=== PATIENT | female | born 1945 | race African-American/Black ===

== ENCOUNTER 2017-06-18 22:58 | Emergency (ER) | payer MEDICARE, BC ==
[~2017-06-18] VITALS: Ht 172.7 cm; Wt 76.0 kg
[2017-06-18 23:09] VITALS: BP 211/100; PULSE 83; RESP 16; TEMP 98.7; O2SAT 97
[2017-06-18] MEDS ORDERED: CARV25TA PO (23:45)
[2017-06-18] MEDS ORDERED: PHILCAP2 (23:45)
[2017-06-18] MEDS ORDERED: VITACAP7 PO (23:45)
[2017-06-18] MEDS ORDERED: DIPH25CA PO (23:45)
[2017-06-18] MEDS ORDERED: CENTCHW4 CHEW (23:45)
[2017-06-18] MEDS ORDERED: CHLO25TA2 PO (23:45)
[2017-06-18] MEDS ORDERED: FEXO15TA PO (23:45)
[2017-06-18] MEDS ORDERED: ASPI1TAB57 PO (23:45)
[2017-06-18] MEDS ORDERED: CETI10 PO (23:45)
[2017-06-18] MEDS ORDERED: [UNRECOGNIZED DRUG - CODE] PO (23:45)
[2017-06-18] MEDS ORDERED: TAMO20TA6 PO (23:45)
--- NOTE | 2017-06-18 23:53 | PD ---
HPI Chief Complaint: GI Complaint Time Seen by Provider: 23:43 Travel History International Travel<30 days: No Contact w/Intl Traveler<30days: No Traveled to known affect area: No History of Present Illness HPI 72yo F with PMH of HTN here with c/o abdominal pain since 7pm. Said it started about 1 hour after dinner and pain is epigastric, RUQ and then went to [facility] as well. Sharp, constant pain. Associated with nausea and an episode of vomiting. Also loose stools. Pt had she did have gallstones years ago. PSH c- section, double mastectomy (cancer free for 9 years). Denies any fever, chest pain, sob, dysuria, hematuria, focal weakness or numbness. PFSH Past Medical History Cancer: Yes (BREAST) Cardiovascular Problems: Yes (HTN) Hypertension: Yes Past Surgical History Section: Yes (X2) Hysterectomy: Yes Other Surgery: Yes (THYROID / DBL MAST) Social History Alcohol Use: Yes (OCC) Tobacco Use: No Substance Use: No Allergies-Medications (Allergen,Severity, Reaction): Coded Allergies: alendronate sodium (Verified Allergy, Severe, Anaphylaxis, 06/18/17) prochlorperazine (Verified Allergy, Severe, Anaphylaxis, 06/18/17) gabapentin (Verified Adverse Reaction, Intermediate, Edema, 06/18/17) levofloxacin (Verified Adverse Reaction, Intermediate, Cough, 06/18/17) naproxen (Verified Adverse Reaction, Intermediate, Nausea/Vomiting, ) oxycodone (Verified Adverse Reaction, Intermediate, Nausea/Vomiting, ) Reported Meds & Prescriptions Reported Meds & Active Scripts Active Reported Diphenhydramine (Diphenhydramine HCl) 25 Mg Cap 25 Mg PO ONCE Cetirizine (Cetirizine HCl) 10 Mg Tab 10 Mg PO DAILY Julia Allergy (Fexofenadine HCl) 180 Mg Tab 180 Mg PO DAILY [employer] (Probiotic Product) 1.5 Billion Cell Cap Calcium Plus Vitamin D3 (Calcium Carbonate-Cholecalciferol) 600-400 Mg-Unit Tab 1 Tab PO BID B Complex (B-Complex Vitamins) 1 Cap 1 Cap PO DAILY Centrum (Multiple Vitamins W/ Minerals) 1 Chew 1 Tab CHEW DAILY Aspirin 81 (Aspirin) 81 Mg Tabdr 81 Mg PO DAILY Tamoxifen (Tamoxifen Citrate) 20 Mg Tab 20 Mg PO ONCE Chlorthalidone 25 Mg Tab 25 Mg PO DAILY Carvedilol 25 Mg Tab 25 Mg PO BID Review of Systems Except as stated in HPI: all other systems reviewed are Neg Physical Exam Narrative GENERAL: 72yo F in mild distress. SKIN: Focused skin assessment warm/dry. HEAD: Atraumatic. Normocephalic. EYES: Pupils equal and round. No scleral icterus. No injection or drainage. ENT: No nasal bleeding or discharge. Mucous membranes pink and moist. NECK: Trachea midline. No JVD. CARDIOVASCULAR: Regular rate and rhythm. No murmur appreciated. RESPIRATORY: No accessory muscle use. Clear to auscultation. Breath sounds equal bilaterally. GASTROINTESTINAL: Abdomen soft, +TTP RUQ, mild epigastric ttp. No rebound tenderness or guarding. MUSCULOSKELETAL: No obvious deformities. No clubbing. No cyanosis. No edema. NEUROLOGICAL: Awake and alert. No obvious cranial nerve deficits. Motor grossly within normal limits. Normal speech. PSYCHIATRIC: Appropriate mood and affect; insight and judgment normal. Data Data Last Documented VS Vital Signs Date Time Temp Pulse Resp B/P (MAP) Pulse Ox O2 Delivery O2 Flow Rate FiO2 06/19/17 01:32 70 18 198/93 (128) 100 Room Air 06/18/17 23:09 98.7 Orders Orders Basic Metabolic Panel (Bmp) (06/18/17 23:49) Complete Blood Count With Diff (06/18/17 23:49) Lipase (06/18/17 23:49) Prothrombin Time / Inr (Pt) (06/18/17 23:49) Act Partial Throm Time (Ptt) (06/18/17 23:49) Urinalysis - C+S If Indicated (06/18/17 23:49) Hepatic Functional Panel (06/18/17 23:49) Ondansetron Inj (Zofran Inj) (06/19/17 00:00) Morphine Inj (Morphine Inj) (06/19/17 00:00) Electrocardiogram (06/18/17 ) Troponin I (06/19/17 00:22) Ct Abd/Pel W Iv Contrast(Rout) (06/19/17 ) Morphine Inj (Morphine Inj) (06/19/17 01:45) Iohexol 350 Inj (Omnipaque 350 Inj) (06/19/17 01:54) Labs Laboratory Tests Test 06/19/17 00:22 06/19/17 01:20 White Blood Count 12.5 TH/MM3 Red Blood Count 4.30 MIL/MM3 Hemoglobin 13.6 GM/DL Hematocrit 40.7 % Mean Corpuscular Volume 94.8 FL Mean Corpuscular Hemoglobin 31.6 PG Mean Corpuscular Hemoglobin Concent 33.4 % Red Cell Distribution Width 12.6 % Platelet Count 180 TH/MM3 Mean Platelet Volume 9.5 FL Neutrophils (%) (Auto) 67.2 % Lymphocytes (%) (Auto) 21.5 % Monocytes (%) (Auto) 9.2 % Eosinophils (%) (Auto) 1.5 % Basophils (%) (Auto) 0.6 % Neutrophils # (Auto) 8.4 TH/MM3 Lymphocytes # (Auto) 2.7 TH/MM3 Monocytes # (Auto) 1.2 TH/MM3 Eosinophils # (Auto) 0.2 TH/MM3 Basophils # (Auto) 0.1 TH/MM3 CBC Comment DIFF FINAL Differential Comment Prothrombin Time 12.7 SEC Prothromb Time International Ratio 1.1 RATIO Activated Partial Thromboplast Time 25.9 SEC Blood Urea Nitrogen 19 MG/DL Creatinine 1.10 MG/DL Random Glucose 97 MG/DL Total Protein 7.7 GM/DL Albumin 3.7 GM/DL Calcium Level 8.9 MG/DL Alkaline Phosphatase 52 U/L Aspartate Amino Transf (AST/SGOT) 31 U/L Alanine Aminotransferase (ALT/SGPT) 26 U/L Total Bilirubin 0.4 MG/DL Direct Bilirubin 0.1 MG/DL Sodium Level 137 MEQ/L Potassium Level 3.5 MEQ/L Chloride Level 101 MEQ/L Carbon Dioxide Level 28.3 MEQ/L Anion Gap 8 MEQ/L Estimat Glomerular Filtration Rate 59 ML/MIN Indirect Bilirubin 0.3 MG/DL Troponin I LESS THAN 0.02 NG/ML Lipase 285 U/L Urine Color YELLOW Urine Turbidity HAZY Urine pH 8.0 Urine Specific Tinnie 1.018 Urine Protein TRACE mg/dL Urine Glucose (UA) NEG mg/dL Urine Ketones NEG mg/dL Urine Occult Blood NEG Urine Nitrite NEG Urine Bilirubin NEG Urine Urobilinogen LESS THAN 2.0 MG/DL Urine Leukocyte Esterase NEG Urine RBC 1 /hpf Urine WBC 1 /hpf Urine Squamous Epithelial Cells <1 /hpf Urine Amorphous Sediment FEW Microscopic Urinalysis Comment CULT NOT INDICATED MDM Medical Decision Making Medical Screen Exam Complete: Yes Emergency Medical Condition: Yes Differential Diagnosis Acute cholecystitis vs. pancreatitis vs. gastritis vs. peptic ulcer disease Narrative Course 72yo F with RUQ abdominal pain and nausea after eating today. Labs reviewed, WBC 12.5. Troponin negative. Bilirubin normal. LFTs normal. Lipase normal. UA negative. CT a/p showed calcified gallstone in the gallbladder neck. No pericholecystic inflammatory changes. Pt given morphine and zofran and reevaluated at bedside. Said her pain is gone and she is no longer nauseous. Discussed with her and feels that she can follow up with general surgery as outpatient and return if symptoms return. Diagnosis Primary Impression: Cholelithiasis Qualified Codes: K80.20 - Calculus of gallbladder without cholecystitis without obstruction Referrals: Ellis Shah MD call for appointment Calcified gallstone in gallbladder neck. Patient Instructions: General Instructions Departure Forms: Tests/Procedures Additional Instructions: Please follow up with general surgery in 1-2 days. Return to the ED immediately if you have abdominal pain, nausea, vomiting or any other concerning symptoms. Med/Other Pt SpecificInfo: Prescription(s) given Scripts Acetaminophen (Tylenol) 325 Mg Tab 650 MG PO Q6H Y for PAIN SCALE 1 TO 4, #20 TAB 0 Refills Prov: Faby Mazariegos DO 06/19/17 Disposition: 01 DISCHARGE HOME Condition: Stable Faby Mazariegos DO Jun 18, 2017 23:52
[2017-06-19] MEDS ORDERED: MORPHINE SULFATE 2 MG/ML INJ IV PUSH ONE
[2017-06-19] MEDS ORDERED: ONDANSETRON HCL 4 MG/2 ML VIAL IV PUSH ONE
[2017-06-19 00:39] LABS: AUTOMATED NEUTROPHIL # 8.4 TH/MM3 (1.8-7.7); BASOPHIL # 0.1 TH/MM3 (0-0.2); BASOPHIL % 0.6 % (0.0-2.0); EOSINOPHIL # 0.2 TH/MM3 (0-0.4); EOSINOPHIL % 1.5 % (0.0-4.0); HEMATOCRIT 40.7 % (35.0-46.0); HEMO FLAGS DIFF FINAL; LYMPH % 21.5 % (9.0-44.0); LYMPHOCYTE # 2.7 TH/MM3 (1.0-4.8); MEAN CELL VOLUME 94.8 FL (80.0-100.0); MEAN CORPUSCULAR HEMOGLOBIN 31.6 PG (27.0-34.0); MEAN CORPUSCULAR HGB CONC 33.4 % (32.0-36.0); MONO % 9.2 % (0.0-8.0); NEUT % 67.2 % (16.0-70.0); PLATELET COUNT 180 TH/MM3 (150-450); RED CELL DISTRIBUTION WIDTH 12.6 % (11.6-17.2); WHITE BLOOD COUNT 12.5 TH/MM3 (4.0-11.0)
[2017-06-19 00:56] LABS: APTT (PATIENT) 25.9 SEC (24.3-30.1); INTERNATIONAL NORMALIZED RATIO 1.1 RATIO; PROTHROMBIN TIME - PATIENT 12.7 SEC (9.8-11.6)
[2017-06-19 01:06] LABS: ALKALINE PHOSPHATASE 52 U/L (45-117); TOTAL BILIRUBIN ADULT 0.4 MG/DL (0.2-1.0)
[2017-06-19 01:19] LABS: ALT (GPT) 26 U/L (10-53); ANION GAP 8 MEQ/L (5-15); AST (GOT) 31 U/L (15-37); BICARBONATE 28.3 MEQ/L (21.0-32.0); BLOOD UREA NITROGEN 19 MG/DL (7-18); CHLORIDE 101 MEQ/L (98-107); GLOMERULAR FILTRATION RATE 59 ML/MIN (>89); INDIRECT BILIRUBIN 0.3 MG/DL (0.0-0.8); POTASSIUM 3.5 MEQ/L (3.5-5.1); SODIUM (NA) 137 MEQ/L (136-145)
[2017-06-19 01:32] VITALS: BP 198/93; PULSE 70; RESP 18; O2SAT 100
[2017-06-19 01:44] LABS: BLOOD, URINE NEG (NEG); COMMENT (UR) CULT NOT INDICATED; CULTURE IF INDICATED CULT NOT INDICATED; GLUCOSE,URINE NEG (NEG); KETONE, URINE NEG (NEG); NITRITE,URINE NEG (NEG); SQUAMOUS EPITHELIAL CELL URINE <1 /hpf (0-5); URINE COLOR YELLOW (YELLW/STRAW)
[2017-06-19] MEDS ORDERED: MORPHINE SULFATE 4 MG/ML INJ IV PUSH ONE (01:45)
[2017-06-19] MEDS ORDERED: IOHEXOL 350 MG/ML 10 ML VIAL (for RAD DIAG) IVCONTRAST ONE (01:54)
--- NOTE | 2017-06-19 02:09 | RADRPT ---
EXAM DATE/TIME: 06/19/2017 01:49 [facility] COMPARISON: No previous studies available for comparison. INDICATIONS : Diffuse abdominal pain and nausea. IV CONTRAST: 95 cc Omnipaque 350 (iohexol) IV ORAL CONTRAST: No oral contrast ingested. RADIATION DOSE: 9.44 CTDIvol (mGy) MEDICAL HISTORY : Hypertension. Carcinoma, breast. SURGICAL HISTORY : Hysterectomy. section.Mastectomy, bilateral. ENCOUNTER: Initial ACUITY: 1 day PAIN SCALE: 6/10 LOCATION: Bilateral Abdomen. TECHNIQUE: Volumetric scanning of the abdomen and pelvis was performed. Using automated exposure control and ad justment of the mA and/or kV according to patient size, radiation dose was kept as low as reasonably achievable to obtain optimal diagnostic quality images. DICOM format image data is available electro nically for review and comparison. FINDINGS: LOWER LUNGS: The visualized lower lungs are clear. LIVER: 1.4 cm calcified gallstone within the neck of the gallbladder. Gallbladder is distended. No perichole cystic inflammatory changes identified. Mild diffuse intrahepatic biliary ductal prominence. Common d uct is diffusely prominent measuring 8-9 mm cyst in diameter. SPLEEN: Normal size without lesion. PANCREAS: Mild diffuse prominence of the pancreatic duct. Pancreas otherwise unremarkable. KIDNEYS: Right-sided renal artery calcification. Kidneys are within normal limits. No evidence of hydronephros is. ADRENAL GLANDS: Within normal limits. VASCULAR: There is no aortic aneurysm. BOWEL/MESENTERY: Multiple colonic diverticula. No evidence of acute diverticulitis. Appendix within normal limits. No free air or free fluid. No bowel dilatation. ABDOMINAL WALL: Within normal limits. RETROPERITONEUM: There is no lymphadenopathy. BLADDER: No wall thickening or mass. REPRODUCTIVE: Within normal limits. INGUINAL: There is no lymphadenopathy or hernia. MUSCULOSKELETAL: Mild to moderate bony degenerative findings lumbar spine. Mild osteoarthritic findings of the hips. CONCLUSION: 1. Calcified gallstone in the gallbladder neck. No pericholecystic inflammatory changes identified. 2. Mild intrahepatic and extra hepatic biliary ductal prominence. 3. Colonic diverticulosis. Jeramy La MD on June 19, 2017 at 2:00 Board Certified Radiologist. This report was verified electronically.
[2017-06-19] MEDS ORDERED: TYLE325T PO (02:55)
--- NOTE | 2017-06-20 08:49 | EKG ---
Date Performed: 06/18/2017 Time Performed: 23:21:09 PTAGE: 72 years EKG: Sinus rhythm WITH SINUS ARRHYTHMIA POSSIBLE RIGHT VENTRICULAR CONDUCTION DELAY BORDERLINE ECG NO PREVIOUS TRACING DOCTOR: Obinna Jacobson Interpretating Date/Time 06/20/2017 08:45:26
== END 2017-06-19 03:33 | disposition home or self-care (01) ==
LOC: NEPE 22:58
DX: K80.20 Calculus of gallbladder without cholecystitis without obstruction (principal); I10 Essential (primary) hypertension; I49.8 Other specified cardiac arrhythmias; Z79.82 Long term (current) use of aspirin; Z79.899 Other long term (current) drug therapy; Z85.3 Personal history of malignant neoplasm of breast
CPT/HCPCS: 74177; 80048; 80076; 81001; 83690; 84484; 85025; 85610; 85730; 93005; 96374; 96375; 96376; 99285; J2270; J2405; Q9967

== ENCOUNTER → 2017-07-19 | Day surgery (SDC) | payer MEDICARE, BC ==
[~2017-07-19] VITALS: Ht 174 cm; Wt 74.7 kg
[~2017-07-19] MED LIST: *LABETALOL HCL 100 MG/20 ML VIAL PERIprocedural Use ONLY ONE; *MEPERIDINE 25 MG INJ VIAL PERIprocedural Use ONLY ONE; ACETAMINOPHEN/HYDROcodone 325 MG/5 MG TAB PO ONE; ASPI1TAB57 PO; BUPIVACAINE/EPINEPHRINE 0.25% 50 ML VIAL ONE; CARV25TA PO; CENTCHW4 CHEW; CHLO25TA2 PO; CHLORHEXIDINE GLUCONATE 2 % 1 PACK (2 CLOTHS) TOPICAL PRN; DEXAMETHASONE SOD PHOS 4 MG/ML VIAL IV ONE; DIPH25CA PO; FEXO15TA PO; GLYCOPYRROLATE 1 MG/5 ML SYRINGE IV PUSH ONE; INSULIN HUMAN REGULAR 1,000 UNITS/10 ML VIAL SQ PRN; LACTATED RINGER'S 1000 ML IV PRN; LIDOCAINE HCL 1% PF 5 ML SYRINGE OTHER ONE; METOPROLOL TARTRATE 25 MG TAB PO PRN; MIDAZOLAM HCL 2 MG/2 ML VIAL IV ONE; NEOSTIGMINE 3 MG/3 ML SYR IV ONE; ONDANSETRON HCL 4 MG/2 ML VIAL IV PUSH ONE; POVIDONE IODINE 5% (ANTISEPSIS KIT) 4 APPLICATIONS EACH NARE PRN; PROPOFOL 200 MG/20 ML AMP IV ONE; ROCURONIUM INJ 50 MG/5 ML SYRINGE IV PUSH ONE; SODIUM CHLORID 0.9% 500 ML IV PRN; TOBRSUS9 RIGHT EYE; TYLE325T PO; VITACAP7 PO; [UNRECOGNIZED DRUG - CODE] PO; ceFAZolin 2 GM PREMIX 50 ML IV SCH; ceFAZolin 2 GM PREMIX 50 ML ONE
--- NOTE | 2017-07-19 11:58 | HHI.PR ---
Immediate Post Op Note Procedure Date: Jul 19, 2017 Pre Op Diagnosis: symptomatic cholelithiasis Post Op Diagnosis: same Surgeon: Ellis Shah MD Psychiatric Secretary(s): see or sheet Procedure: lap eliezer Findings: gallstones within gallbladder Complications: none Specimen(s) removed: gallbladder Estimated blood loss: 15cc Anesthesia: General Drains: None Patient to: PACU Patient Condition: Good Ellis Shah MD Jul 19, 2017 11:58
[2017-07-19 15:05] VITALS: BP 164/88; PULSE 63; RESP 18; O2SAT 99
--- NOTE | 2017-07-20 09:52 | MP ---
cc: GUNNAR SHAH MD DATE OF SURGERY 07/19/2017 PREOPERATIVE DIAGNOSIS Symptomatic cholelithiasis. POSTOPERATIVE DIAGNOSIS Symptomatic cholelithiasis. PROCEDURE PERFORMED Laparoscopic cholecystectomy SURGEON Dr. Gunnar Shah HARVESTING MANAGER See OR sheet ANESTHESIA GETA IV FLUIDS See anesthesia sheet ESTIMATED BLOOD LOSS 15 cc DRAINS None COMPLICATIONS None WOUND CLASSIFICATION Clean contaminated. SPECIMEN Gallbladder FINDINGS Distended gallbladder with multiple gallstones. INDICATION The patient is a 72-year-old female who presents with acute onset of right upper quadrant abdominal pain. This has been going on for a few months. The patient see in the ER with further workup including CT scan showing gallstones. Decision was made after evaluation for laparoscopic cholecystectomy. DETAILS OF THE PROCEDURE The patient was taken to the operating room suite, placed in the supine position. She was prepped and draped in the usual sterile fashion after induction of general endotracheal anesthesia. A brief time-out done stating correct patient, procedure, and surgical site and we were all in agreement with this. Attention was directed to the umbilicus where a stab saqib incision was made, Veress needle placed. An intraabdominal placement confirmed the saline drop test. Abdomen insufflated to 15 mm pneumoperitoneum. A 5 mm visual port was used to enter the umbilicus and abdomen. On cursory inspection, no evidence of injury. Abdomen was insufflated. The patient placed in reverse Trendelenburg and airplaned to the left. Three trocars placed, one 12 mm in the epigastric, followed by two 5 mm right subcostal. The gallbladder was identified and grasped. There were several adhesions taken down to the gallbladder and the liver. This was grasped and retracted cephalad. The cystic duct and cystic artery were dissected out. She has no inguinal structures noted to be entering in the gallbladder. Two clips were placed proximal and one distal on both the cystic duct and cystic artery. The duct and artery were then transected with Endoshears. The gallbladder was removed from the gallbladder fossa using a hook electro Bovie cautery. The electrocautery Bovie cautery was used for hemostasis. Minimal bleeding was hemostatic. The gallbladder was placed in the EndoCatch bag and removed from the epigastric port and sent to pathology. Minimal liver bleeding was also Bovie cauterized with good hemostasis. Next, the ports were removed. The epigastric port was closed with a [id number] 0 Vicryl to the fascia, 4-0 Monocryl sutures subcuticular layer was done to all port sites. Sterile dressings in place. The patient tolerated the procedure well. There is were no intraoperative complications. All lap and instrument counts were correct at the end of the procedure. The patient will be taken to the PACU. MD JOVI Saul/SHUN /7:39 PM /9:30 AM
== END | disposition home or self-care (01) ==
LOC: HSDC 08:24
PROVIDERS: ATTEND Surgery
DX: K80.10 Calculus of gallbladder with chronic cholecystitis without obstruction (principal); I10 Essential (primary) hypertension; R11.2 Nausea with vomiting, unspecified; R19.7 Diarrhea, unspecified
CPT/HCPCS: 00790; 47562; 88304; J0690; J1100; J2175; J2250; J2405; J2710; J3010; J7120